=== PATIENT | male | born 1995 | race Caucasian/White ===

== ENCOUNTER 2018-10-08 19:14 | Emergency (ER) | payer MEDICAID, OTHER ==
[2018-10-08] MEDS ORDERED: ALBUTEROL NEB 2.5 MG/3 ML INH STA (21:07)
[2018-10-08] MEDS ORDERED: DOXYCYCLINE 100 MG TABLET PO STA (21:07)
--- NOTE | 2018-10-08 21:10 | ED Physician Documentation ---
PD HPI URI - Stated complaint Stated Complaint: BILAT EAR PX - Chief complaint Chief Complaint: Heent - History obtained from History obtained from: Patient - History of Present Illness Timing - onset: Yesterday Timing duration: Days (2) Timing details: Gradual onset Pain level max: 5 Pain level now: 4 Associated symptoms: Ear pain, Nasal congestion, Rhinorrhea, Dry cough, Dyspnea (wheezing). No: Fever, Chills Contributing factors: Sick contact Improves by: Rest Worsened by: Breathing Similar symptoms before: Has not had sx before Recently seen: Not recently seen Review of Systems Constitutional: denies: Fever, Chills Ears: reports: Ear pain Nose: reports: Rhinorrhea / runny nose, Congestion Throat: denies: Sore throat Cardiac: denies: Chest pain / pressure Respiratory: reports: Dyspnea, Cough, Wheezing GI: denies: Nausea, Vomiting, Diarrhea Skin: denies: Rash Musculoskeletal: denies: Neck pain, Back pain Neurologic: denies: Headache PD PAST MEDICAL HISTORY - Past Medical History Past Medical History: Yes GI: GERD - Past Surgical History Past Surgical History: No - Present Medications Home Medications: Ambulatory Orders Medication Instructions Recorded Confirmed Albuterol Sulf [Ventolin Hfa 1 - 2 puffs INH Q4HR PRN #1 inhaler 10/08/18 Inhaler] Benzonatate [Tessalon Perle] 100 - 200 mg PO TID PRN #30 capsule 10/08/18 Doxycycline Hyclate 100 mg PO BID #20 capsule 10/08/18 - Allergies Allergies/Adverse Reactions: Allergies Allergy/AdvReac Type Severity Reaction Status Date / Time erythromycin base Allergy Unknown Verified 10/08/18 19:24 Penicillins Allergy Unknown Verified 10/08/18 19:24 Sulfa (Sulfonamide Allergy Unknown Verified 10/08/18 19:24 Antibiotics) - Social History Does the pt smoke?: Yes Smoking Status: Current every day smoker Does the pt drink ETOH?: No Does the pt have substance abuse?: No - Immunizations Immunizations are current?: Yes - POLST Patient has POLST: No PD ED PE NORMAL - Vitals Vital signs reviewed: Yes - General General: Alert and oriented X 3, No acute distress, Well developed/nourished - HEENT HEENT: Moist mucous membranes, Pharynx benign, Other (Bilateral tympanic remains are erythematous, dull, bulging with loss of landmarks. Purulent fluid present.) - Neck Neck: Supple, no meningeal sign - Cardiac Cardiac: RRR - Respiratory Respiratory: No respiratory distress, Other (Wheezing and diminished breath sounds bilaterally) - Abdomen Abdomen: Soft, Non tender, Non distended - Derm Derm: Warm and dry, No rash - Extremities Extremities: Normal ROM s pain, No edema - Neuro Neuro: Alert and oriented X 3 Results - Vitals Vitals: Vital Signs - 24 hr 10/08/18 10/08/18 10/08/18 19:20 21:34 21:45 Temperature 36.0 C L Heart Rate 106 H 87 88 Respiratory 18 18 16 Rate Blood Pressure 132/82 H 130/80 O2 Saturation 95 96 Oxygen O2 Source Room air PD MEDICAL DECISION MAKING - ED course Complexity details: reviewed results, re-evaluated patient, considered differential, d/w patient ED course: Patient appears to have bilateral acute otitis media as well as wheezing. Feels better after nebulizer treatment. Has multiple antibiotic allergies. Patient is well-appearing, nontoxic. No hypoxia. No respiratory distress. Patient counseled regarding signs and symptoms for which I believe and urgent re- evaluation would be necessary. Patient with good understanding of and agreement to plan and is comfortable going home at this time This document was made in part using voice recognition software. While efforts are made to proofread this document, sound alike and grammatical errors may occur. Departure - Departure Disposition: 01 Home, Self Care Clinical Impression: Viral URI Otitis media Qualifiers: Otitis media type: suppurative Chronicity: acute Laterality: bilateral Recurrence: non-recurrent Spontaneous tympanic membrane rupture: without spontaneous rupture Qualified Code(s): H66.003 - Acute suppurative otitis media without spontaneous rupture of ear drum, bilateral Condition: Good Instructions: ED Otitis Media Acute Adult, ED Viral Syndrome Follow-Up: your,doctor in 1 week [Other] Prescriptions: Albuterol Sulf [Ventolin Hfa Inhaler] 1 - 2 puffs INH Q4HR PRN #1 inhaler PRN Reason: Shortness Of Air/Wheezing Benzonatate [Tessalon Perle] 100 - 200 mg PO TID PRN #30 capsule PRN Reason: Cough Doxycycline Hyclate 100 mg PO BID #20 capsule Comments: Return if you worsen. Take all antibiotics until gone. Discharge Date/Time: 10/08/18 21:45
[2018-10-08 21:46] VITALS: BP 130/80
== END 2018-10-08 21:45 | disposition home or self-care (01) ==
LOC: ED 19:14
DX: J06.9 Acute upper respiratory infection, unspecified (principal); B97.89 Other viral agents as the cause of diseases classified elsewhere; H66.003 Acute suppurative otitis media without spontaneous rupture of ear drum, bilateral; F17.200 Nicotine dependence, unspecified, uncomplicated
CPT/HCPCS: 94640; 94664; 99283; A9270

== ENCOUNTER 2018-11-19 14:14 | Emergency (ER) | payer OTHER ==
[2018-11-19 14:24] VITALS: BP 131/72
--- NOTE | 2018-11-19 14:26 | ED Physician Documentation ---
PD HPI URI - Stated complaint Stated Complaint: RIGHT EAR PAIN - Chief complaint Chief Complaint: Heent - History obtained from History obtained from: Patient - History of Present Illness Timing - onset: How many weeks ago (He has been having infection in the right ear with pain there. He has been on prior antibiotic without any improvement.) Timing duration: Weeks Timing details: Gradual onset, Still present, Waxing and waning Associated symptoms: Ear pain, Nasal congestion. No: Fever, Dry cough, NVD Similar symptoms before: Diagnosis (ear infection) Review of Systems Constitutional: denies: Fever, Chills, Myalgias Ears: reports: Loss of hearing, Ear pain. denies: Drainage/discharge, Tinnitus/ringing Nose: reports: Congestion. denies: Rhinorrhea / runny nose Throat: denies: Sore throat Respiratory: denies: Cough GI: denies: Nausea, Vomiting Skin: denies: Rash, Lesions PD PAST MEDICAL HISTORY - Past Medical History Cardiovascular: None GI: GERD HEENT: Other (ear infection) - Past Surgical History Past Surgical History: No - Present Medications Home Medications: Ambulatory Orders Medication Instructions Recorded Confirmed Benzonatate [Tessalon Perle] 100 - 200 mg PO TID PRN #30 capsule 10/08/18 RX: Albuterol Sulf [Ventolin Hfa 1 - 2 puffs INH Q4HR PRN #1 inhaler 10/08/18 Inhaler] RX: Doxycycline Hyclate 100 mg PO BID #20 capsule 10/08/18 Cephalexin [Keflex] 500 mg PO TID #21 capsule 11/19/18 Dexamethasone [Decadron] 4 mg PO DAILY #5 tablet 11/19/18 RX: Cetirizine [ZyrTEC] 10 mg PO DAILY #30 tablet 11/19/18 RX: Naproxen 500 mg PO BID #20 tablet 11/19/18 - Allergies Allergies/Adverse Reactions: Allergies Allergy/AdvReac Type Severity Reaction Status Date / Time erythromycin base Allergy Unknown Verified 11/19/18 14:25 Penicillins Allergy Unknown Verified 11/19/18 14:25 Sulfa (Sulfonamide Allergy Unknown Verified 11/19/18 14:25 Antibiotics) - Social History Does the pt smoke?: Yes Smoking Status: Current every day smoker Does the pt drink ETOH?: No Does the pt have substance abuse?: No - Immunizations Immunizations are current?: Yes - POLST Patient has POLST: No PD ED PE NORMAL - Vitals Vital signs reviewed: Yes - General General: Alert and oriented X 3, Well developed/nourished - HEENT HEENT: Pharynx benign. No: Ears normal (left is normal; right with redness and bulging of the TM. Canal appears okay. No drainage. ) - Neck Neck: Supple, no meningeal sign, Other (right preauricular node with tenderness. ) - Cardiac Cardiac: RRR, No murmur - Respiratory Respiratory: Clear bilaterally - Derm Derm: Normal color, Warm and dry, No rash - Neuro Neuro: Alert and oriented X 3, No motor deficit, Normal speech Results - Vitals Vitals: Oxygen O2 Source Room air PD MEDICAL DECISION MAKING - ED course Complexity details: considered differential, d/w patient Departure - Departure Disposition: 01 Home, Self Care Clinical Impression: Otitis media Qualifiers: Otitis media type: suppurative Chronicity: acute Laterality: right Recurrence: recurrent Spontaneous tympanic membrane rupture: without spontaneous rupture Qualified Code(s): H66.004 - Acute suppurative otitis media without spontaneous rupture of ear drum, recurrent, right ear Condition: Stable Record reviewed to determine appropriate education?: Yes Instructions: ED Otitis Media Acute Adult Prescriptions: Cephalexin [Keflex] 500 mg PO TID #21 capsule RX: Cetirizine [ZyrTEC] 10 mg PO DAILY #30 tablet Dexamethasone [Decadron] 4 mg PO DAILY #5 tablet RX: Naproxen 500 mg PO BID #20 tablet Comments: Stay well-hydrated. Off work for the next 2-3 days due to current illness. Cephalexin as directed for the ear infection. Decadron 4 inflammation of the eustachian tube and promote better drainage. I would suggest cetirizine antihistamine daily for a month as recurrent ear infection commonly relates to some underlying allergy or fluid buildup. Use naproxen twice daily for pains. Add Tylenol if needed. Forms: Activity restrictions Discharge Date/Time: 11/19/18 15:02
[2018-11-19] MEDS ORDERED: CHERRY SYRUP 10 ML UDC PO ONE (14:50)
[2018-11-19] MEDS ORDERED: NAPROXEN 250 MG TABLET PO STA (14:50)
[2018-11-19] MEDS ORDERED: ACETAMINOPHEN 325 MG TABLET PO STA (14:50)
[2018-11-19] MEDS ORDERED: DEXAMETHASONE 10 MG/ML VIAL PO STA (14:50)
[2018-11-19] MEDS ORDERED: cephALEXin 250 MG CAPSULE PO STA (14:50)
== END 2018-11-19 15:02 | disposition home or self-care (01) ==
LOC: ED 14:14
DX: H66.004 Acute suppurative otitis media without spontaneous rupture of ear drum, recurrent, right ear (principal); F17.200 Nicotine dependence, unspecified, uncomplicated; Z88.1 Allergy status to other antibiotic agents; Z88.0 Allergy status to penicillin; Z88.2 Allergy status to sulfonamides
CPT/HCPCS: 99283; A9270

== ENCOUNTER 2018-12-19 23:53 | Emergency (ER) | payer MEDICARE, OTHER ==
--- NOTE | 2018-12-20 00:35 | ED Physician Documentation ---
PD HPI UPPER EXT INJURY - Stated complaint Stated Complaint: HAND/KNEE PX - Chief complaint Chief Complaint: Trauma Ext - History obtained from History obtained from: Patient - History of Present Illness Location: Right, Hand (right), Other (left tibia/knee) Type of injury: Fall Timing - onset: Enter time (18:00), Today Timing - details: Abrupt onset Pain level now: 4 Improved by: Rest Worsened by: Moving, Palpating Associated symptoms: Swelling Similar symptoms before: Has not had sx before Recently seen: Not recently seen (T+R from this ED last month for unrelated c/o) - Additonal information Additional information: fell while playing basketball this evening, c/o right hand and left knee pain. patient is right-hand dominant. pain is worse with movement, weight-bearing Review of Systems Skin: reports: Abrasion (s) Musculoskeletal: reports: Extremity pain, Extremity swelling, Pain with weight bearing Neurologic: denies: Focal weakness, Numbness PD PAST MEDICAL HISTORY - Past Medical History Past Medical History: Yes Cardiovascular: None GI: GERD HEENT: Other Psych: Depression, Anxiety - Past Surgical History Past Surgical History: No - Present Medications Home Medications: Ambulatory Orders Medication Instructions Recorded Confirmed Ibuprofen 600 mg PO Q6HR PRN #20 tablet 12/20/18 - Allergies Allergies/Adverse Reactions: Allergies Allergy/AdvReac Type Severity Reaction Status Date / Time erythromycin base Allergy Unknown Verified 12/20/18 00:03 Penicillins Allergy Unknown Verified 12/20/18 00:03 Sulfa (Sulfonamide Allergy Unknown Verified 12/20/18 00:03 Antibiotics) - Social History Does the pt smoke?: Yes Smoking Status: Current every day smoker Does the pt drink ETOH?: Yes Does the pt have substance abuse?: No Substance Use and Type: Marijuana - Immunizations Immunizations are current?: Yes - POLST Patient has POLST: No PD ED PE NORMAL - Vitals Vital signs reviewed: Yes - General General: Alert and oriented X 3, No acute distress, Well developed/nourished PD ED PE EXPANDED - Extremities Extremities: Tenderness, Limited ROM, Swelling, Abrasion JACINDA UE/Hands Visual: 1 - swelling, tenderness JACINDA LE visual: 1 - bruising, abrasion, swelling, tenderness Results - Vitals Vitals: Oxygen O2 Source Room air - Rads (name of study) right hand xrays Radiology: Prelim report reviewed, See rad report PD MEDICAL DECISION MAKING - ED course Complexity details: reviewed results, re-evaluated patient, considered differential, d/w patient Departure - Departure Disposition: 01 Home, Self Care Clinical Impression: Injury of lower leg Qualifiers: Encounter type: initial encounter Laterality: left Qualified Code(s): S89.92XA - Unspecified injury of left lower leg, initial encounter Contusion of right hand Qualifiers: Encounter type: initial encounter Qualified Code(s): S60.221A - Contusion of right hand, initial encounter Condition: Good Instructions: ED Contusion Lower Ext, ED Sprain Hand Prescriptions: Ibuprofen 600 mg PO Q6HR PRN #20 tablet PRN Reason: Pain Comments: There does not appear to be a fracture/break on your hand xrays. This does not mean there is no injury, and the swelling and the tenderness of both your hand and your knee will improve with rest for the next few days Forms: Activity restrictions Discharge Date/Time: 12/20/18 02:43
--- NOTE | 2018-12-20 01:47 | XRAY Report ---
Reason: fall, pain and tenderness thenar eminance Procedure Date: 12/20/2018 Accession Number: [id number] / [id number] Procedure: XR - Hand 3 View RT CPT Code: FULL RESULT: EXAM: RIGHT HAND RADIOGRAPHY EXAM DATE: 12/20/2018 01:41 AM. CLINICAL HISTORY: Fall, pain and tenderness thenar eminence. COMPARISON: None. TECHNIQUE: 3 views. FINDINGS: Bones: No fracture seen. No acute osseous abnormality. Joints: No dislocation seen. Joint spaces appear intact. Soft Tissues: Grossly unremarkable. IMPRESSION: 1. No acute osseous abnormality seen. RADIA
[2018-12-20 02:00] VITALS: BP 119/63
== END 2018-12-20 02:43 | disposition home or self-care (01) ==
LOC: ED 23:53
DX: S60.221A Contusion of right hand, initial encounter (principal); S80.02XA Contusion of left knee, initial encounter; S80.212A Abrasion, left knee, initial encounter; W18.30XA Fall on same level, unspecified, initial encounter; Y93.67 Activity, basketball; F17.200 Nicotine dependence, unspecified, uncomplicated
CPT/HCPCS: 99283

== ENCOUNTER 2019-03-16 10:27 | Emergency (ER) | payer MEDICARE, OTHER, MEDICAID ==
[2019-03-16 10:40] VITALS: BP 130/70
[2019-03-16] MEDS ORDERED: DEXAMETHASONE 10 MG/ML VIAL PO STA (12:32)
[2019-03-16] MEDS ORDERED: CHERRY SYRUP 10 ML UDC PO ONE (12:32)
[2019-03-16] MEDS ORDERED: DOXYCYCLINE 100 MG TABLET PO STA (12:33)
--- NOTE | 2019-03-16 12:34 | ED Physician Documentation ---
History of Present Illness - Stated complaint Stated Complaint: SORE THROAT - Chief complaint Chief Complaint: Heent - History obtained from History obtained from: Patient - History of Present Illness Timing: Today Pain level max: 5 Pain level now: 4 - Additonal information Additional information: 23-year-old male presents to the emergency department complaint of a sore throat today. Denies any rhinorrhea or Congestion. Has had a subjective fever. No vomiting. No abdominal pain. Worse with swallowing, better with rest. Review of Systems Respiratory: denies: Cough GI: denies: Nausea, Vomiting Skin: denies: Rash PD PAST MEDICAL HISTORY - Past Medical History Past Medical History: Yes Cardiovascular: None GI: GERD HEENT: Other Psych: Depression, Anxiety - Past Surgical History Past Surgical History: No - Present Medications Home Medications: Ambulatory Orders Medication Instructions Recorded Confirmed Ibuprofen 600 mg PO Q6HR PRN #20 tablet 12/20/18 Doxycycline Hyclate 100 mg PO BID #20 capsule 03/16/19 - Allergies Allergies/Adverse Reactions: Allergies Allergy/AdvReac Type Severity Reaction Status Date / Time Cephalosporins Allergy Unknown Verified 03/16/19 10:41 erythromycin base Allergy Unknown Verified 03/16/19 10:41 Penicillins Allergy Unknown Verified 03/16/19 10:41 Sulfa (Sulfonamide Allergy Unknown Verified 03/16/19 10:41 Antibiotics) - Social History Does the pt smoke?: Yes Smoking Status: Current every day smoker Does the pt drink ETOH?: Yes Does the pt have substance abuse?: No - Immunizations Immunizations are current?: Yes - POLST Patient has POLST: No PD ED PE NORMAL - Vitals Vital signs reviewed: Yes - General General: Alert and oriented X 3, No acute distress, Well developed/nourished - HEENT HEENT: PERRL, Ears normal, Moist mucous membranes, Other (Moderate posterior oropharyngeal erythema with tonsillar exudates. Uvula midline.) - Neck Neck: Supple, no meningeal sign, Other (Shotty anterior lymphadenopathy) - Cardiac Cardiac: RRR - Respiratory Respiratory: No respiratory distress, Clear bilaterally - Abdomen Abdomen: Soft, Non tender, Non distended - Derm Derm: Warm and dry, No rash - Neuro Neuro: Alert and oriented X 3 - Psych Psych: Normal mood, Normal affect Results - Vitals Vitals: Vital Signs - 24 hr 03/16/19 10:36 Temperature 36 C L Heart Rate 70 Respiratory 18 Rate Blood Pressure 130/70 O2 Saturation 97 Oxygen O2 Source Room air - Labs Labs: Laboratory Tests 03/16/19 10:43 Group A Strep Rapid Negative PD MEDICAL DECISION MAKING - ED course Complexity details: considered differential, d/w patient ED course: 23-year-old male with what appears to be streptococcal pharyngitis clinically. Will place on antibiotics for home. We will follow-up with his doctor for further care. Patient is well-appearing, nontoxic. Normal phonation. No trismus. Patient counseled regarding signs and symptoms for which I believe and urgent re-evaluation would be necessary. Patient with good understanding of and agreement to plan and is comfortable going home at this time This document was made in part using voice recognition software. While efforts are made to proofread this document, sound alike and grammatical errors may occur. Departure - Departure Disposition: 01 Home, Self Care Clinical Impression: Pharyngitis Qualifiers: Pharyngitis/tonsillitis etiology: unspecified etiology Qualified Code(s): J02.9 - Acute pharyngitis, unspecified Condition: Good Instructions: ED Strep Pharyngitis Poss Follow-Up: Your,doctor in 1 week [Other] Prescriptions: Doxycycline Hyclate 100 mg PO BID #20 capsule Comments: Take all antibiotics until gone. Return if you worsen. Follow-up with your doctor for further care. Discharge Date/Time: 03/16/19 12:47
== END 2019-03-16 12:47 | disposition home or self-care (01) ==
LOC: ED 10:27
DX: J02.9 Acute pharyngitis, unspecified (principal); F17.200 Nicotine dependence, unspecified, uncomplicated
CPT/HCPCS: 87070; 87430; 99283; 99284; A9270

== ENCOUNTER 2019-04-01 21:25 | Emergency (ER) | payer MEDICARE, OTHER, MEDICAID ==
[2019-04-01 21:31] VITALS: BP 137/80
[2019-04-01] MEDS ORDERED: HYDROcod/ACET 5/325 Prepack 4 PO STA (21:47)
[2019-04-01] MEDS ORDERED: DOXYCYCLINE 100 MG TABLET PO STA (21:48)
--- NOTE | 2019-04-01 21:52 | ED Physician Documentation ---
PD HPI URI - Stated complaint Stated Complaint: RT EAR PX - Chief complaint Chief Complaint: Heent - History obtained from History obtained from: Patient - History of Present Illness Timing - onset: Today (He had sudden onset bilateral ear pain, the left ear resolved but the right ear is still very painful with muffled hearing. Recent congestion.) Review of Systems Constitutional: denies: Fever, Chills Ears: reports: Loss of hearing, Ear pain, Tinnitus/ringing. denies: Drainage/discharge, Foreign body Nose: reports: Rhinorrhea / runny nose, Congestion PD PAST MEDICAL HISTORY - Past Medical History Past Medical History: Yes Cardiovascular: None GI: GERD HEENT: Other Psych: Depression, Anxiety - Past Surgical History Past Surgical History: No - Present Medications Home Medications: Ambulatory Orders Medication Instructions Recorded Confirmed Doxycycline Hyclate 100 mg PO BID #20 capsule 04/01/19 Hydrocodone/Acetaminophen 1 - 2 each PO Q6H PRN #7 tablet 04/01/19 [Hydrocodon-Acetaminophen 5-325] - Allergies Allergies/Adverse Reactions: Allergies Allergy/AdvReac Type Severity Reaction Status Date / Time Cephalosporins Allergy Unknown Verified 04/01/19 21:31 erythromycin base Allergy Unknown Verified 04/01/19 21:31 Penicillins Allergy Unknown Verified 04/01/19 21:31 Sulfa (Sulfonamide Allergy Unknown Verified 04/01/19 21:31 Antibiotics) - Social History Does the pt smoke?: Yes Smoking Status: Current every day smoker Does the pt drink ETOH?: Yes Does the pt have substance abuse?: No - Immunizations Immunizations are current?: Yes - POLST Patient has POLST: No PD ED PE NORMAL - Vitals Vital signs reviewed: Yes - General General: Alert and oriented X 3, No acute distress - HEENT HEENT: PERRL, EOMI, Other (Bilateral bulging otitis media) - Neck Neck: Supple, no meningeal sign, No bony TTP - Back Back: No CVA TTP, No spinal TTP - Neuro Neuro: Alert and oriented X 3 - Psych Psych: Normal mood, Normal affect Results - Vitals Vitals: Vital Signs - 24 hr 04/01/19 21:30 Heart Rate 84 Respiratory 16 Rate Blood Pressure 137/80 H O2 Saturation 97 Oxygen O2 Source Room air Departure - Departure Disposition: 01 Home, Self Care Clinical Impression: BOM (bilateral otitis media) Qualifiers: Otitis media type: suppurative Chronicity: acute Recurrence: recurrent Spontaneous tympanic membrane rupture: without spontaneous rupture Qualified Code(s): H66.006 - Acute suppurative otitis media without spontaneous rupture of ear drum, recurrent, bilateral Condition: Good Record reviewed to determine appropriate education?: Yes Instructions: ED Otitis Media Acute Adult Prescriptions: Doxycycline Hyclate 100 mg PO BID #20 capsule Hydrocodone/Acetaminophen [Hydrocodon-Acetaminophen 5-325] 1 - 2 each PO Q6H PRN #7 tablet PRN Reason: pain Comments: Drink plenty of fluids, ibuprofen in addition to the prescriptions as needed for pain. Return for new or worsening symptoms. Follow-up with your doctor in a week.
== END 2019-04-01 22:02 | disposition home or self-care (01) ==
LOC: ED 21:25
DX: H66.006 Acute suppurative otitis media without spontaneous rupture of ear drum, recurrent, bilateral (principal); F17.200 Nicotine dependence, unspecified, uncomplicated
CPT/HCPCS: 99282; 99284; A9270

== ENCOUNTER 2019-04-18 15:35 | Emergency (ER) | payer MEDICARE, OTHER, MEDICAID ==
--- NOTE | 2019-04-18 16:17 | ED Physician Documentation ---
History of Present Illness - Stated complaint Stated Complaint: MHE - Chief complaint Chief Complaint: MHE - History obtained from History obtained from: Patient - History of Present Illness Timing: Today Pain level max: 0 Pain level now: 0 - Additonal information Additional information: 23-year-old male states that he was kicked out of [employer]. He states he has no vertigo. He states that [employer] told him to come to the emergency department to be placed on medication and possibly sent to the hospital for a few days. Patient denies suicide attempts or suicidal ideation. He states that he thinks about suicide occasionally, but has no plan and would not harm himself. He states he has been using alcohol and marijuana recently. Took melatonin to help him sleep when he had to sleep outside 2 nights ago. Was seen a counselor [employer]. States he has high functioning autism. Is not curre ntly on medications. Review of Systems Ten Systems: 10 systems reviewed and negative Constitutional: denies: Fever, Chills Nose: denies: Rhinorrhea / runny nose, Congestion Cardiac: denies: Chest pain / pressure Respiratory: denies: Cough GI: denies: Nausea, Vomiting, Diarrhea Skin: denies: Rash Musculoskeletal: denies: Neck pain, Back pain Neurologic: denies: Focal weakness, Numbness, Headache Psychiatric: reports: Depressed, Insomnia. denies: Suicidal, Homicidal, Hallucinations, Delusions PD PAST MEDICAL HISTORY - Past Medical History Past Medical History: Yes Cardiovascular: None GI: GERD HEENT: Other Psych: Depression, Anxiety - Past Surgical History Past Surgical History: No - Present Medications Home Medications: Ambulatory Orders Medication Instructions Recorded Confirmed Doxycycline Hyclate 100 mg PO BID #20 capsule 04/01/19 Hydrocodone/Acetaminophen 1 - 2 each PO Q6H PRN #7 tablet 04/01/19 [Hydrocodon-Acetaminophen 5-325] - Allergies Allergies/Adverse Reactions: Allergies Allergy/AdvReac Type Severity Reaction Status Date / Time Cephalosporins Allergy Unknown Verified 04/18/19 15:46 erythromycin base Allergy Unknown Verified 04/18/19 15:46 Penicillins Allergy Unknown Verified 04/18/19 15:46 Sulfa (Sulfonamide Allergy Unknown Verified 04/18/19 15:46 Antibiotics) - Social History Does the pt smoke?: Yes Smoking Status: Current every day smoker Does the pt drink ETOH?: Yes Does the pt have substance abuse?: No - Immunizations Immunizations are current?: Yes - POLST Patient has POLST: No PD ED PE NORMAL - Vitals Vital signs reviewed: Yes - General General: Alert and oriented X 3, No acute distress, Well developed/nourished - HEENT HEENT: Moist mucous membranes - Neck Neck: Supple, no meningeal sign - Cardiac Cardiac: RRR - Respiratory Respiratory: No respiratory distress, Clear bilaterally - Abdomen Abdomen: Soft, Non tender, Non distended - Derm Derm: Warm and dry - Extremities Extremities: No edema - Neuro Neuro: Alert and oriented X 3, political geographer 2-12 intact, No motor deficit, No sensory deficit, Normal speech - Psych Psych: Normal mood, Normal affect Results - Vitals Vitals: Vital Signs - 24 hr 04/18/19 04/18/19 15:41 16:46 Temperature 36.2 C L Heart Rate 70 78 Respiratory 19 18 Rate Blood Pressure 151/76 H 140/91 H O2 Saturation 95 97 Oxygen O2 Source Room air PD MEDICAL DECISION MAKING - ED course Complexity details: re-evaluated patient, considered differential, d/w patient, d/w consultants intern ED course: 23-year-old male is not actively homicidal or suicidal. No plan. No imminent threat. Consulted with social work and he will go to [facility] in the morning. Patient is comfortable with this plan. No psychosis or delusions. No hallucinations. Patient counseled regarding signs and symptoms for which I believe and urgent re-evaluation would be necessary. Patient with good understanding of and agreement to plan and is comfortable going home at this time This document was made in part using voice recognition software. While efforts are made to proofread this document, sound alike and grammatical errors may occur. Departure - Departure Disposition: 01 Home, Self Care Clinical Impression: Depression Qualifiers: Depression Type: unspecified Qualified Code(s): F32.9 - Major depressive disorder, single episode, unspecified Condition: Good Instructions: ED Depression Follow-Up: your,doctor in 1 week [Other] Comments: Return if you worsen. You can follow up at [facility] tomorrow during their drop in time at 830 am. [facility] is at [address] [place] [address] in [place]. Crisis Line and is available to talk to someone [email or web address] is also available to chat with someone online if you prefer. There are also many resources on this website and apps for your phone to help with your mental health You can also text the word START to [phone] to chat with someome via text. Discharge Date/Time: 04/18/19 16:53
[2019-04-18 16:47] VITALS: BP 140/91
== END 2019-04-18 16:53 | disposition home or self-care (01) ==
LOC: ED 15:35
DX: F32.9 Major depressive disorder, single episode, unspecified (principal); F17.200 Nicotine dependence, unspecified, uncomplicated
CPT/HCPCS: 99283; 99284

== ENCOUNTER 2019-05-23 09:45 | Emergency (ER) | payer MEDICARE, OTHER, MEDICAID ==
[2019-05-23 09:53] VITALS: BP 123/73
[2019-05-23] MEDS ORDERED: NAPROXEN 250 MG TABLET PO STA (11:58)
[2019-05-23] MEDS ORDERED: CYCLOBENZAPRINE 10 MG TABLET PO STA (11:58)
--- NOTE | 2019-05-23 12:00 | ED Physician Documentation ---
PD HPI BACK INJURY - Stated complaint Stated Complaint: BACK PX - History obtained from History obtained from: Patient - History of Present Illness Location: Lower (Woke 2 days ago with low back pain. It is not too bad at rest but hurts a lot if he bends over or twists or lifts anything. He is had this before but it spent a few years. There is no radiation to the pain, no weakness, numbness, tingling, saddle anesthesia, fevers, incontinence.) Review of Systems Constitutional: denies: Fever, Chills Respiratory: denies: Cough GI: denies: Abdominal Pain, Nausea, Vomiting, Diarrhea : denies: Dysuria, Frequency, Incontinent PD PAST MEDICAL HISTORY - Past Medical History Cardiovascular: None GI: GERD HEENT: Other Psych: Depression, Anxiety - Past Surgical History Past Surgical History: No - Present Medications Home Medications: Ambulatory Orders Medication Instructions Recorded Confirmed Doxycycline Hyclate 100 mg PO BID #20 capsule 04/01/19 Hydrocodone/Acetaminophen 1 - 2 each PO Q6H PRN #7 tablet 04/01/19 [Hydrocodon-Acetaminophen 5-325] Cyclobenzaprine [Flexeril] 10 mg PO TID PRN #20 tablet 05/23/19 Naproxen 500 mg PO BID PRN #20 tablet 05/23/19 - Allergies Allergies/Adverse Reactions: Allergies Allergy/AdvReac Type Severity Reaction Status Date / Time Cephalosporins Allergy Unknown Verified 04/18/19 15:46 erythromycin base Allergy Unknown Verified 04/18/19 15:46 Penicillins Allergy Unknown Verified 04/18/19 15:46 Sulfa (Sulfonamide Allergy Unknown Verified 04/18/19 15:46 Antibiotics) - Social History Does the pt smoke?: Yes Smoking Status: Current every day smoker Does the pt drink ETOH?: Yes Does the pt have substance abuse?: No - Immunizations Immunizations are current?: Yes - POLST Patient has POLST: No PD ED PE NORMAL - Vitals Vital signs reviewed: Yes - General General: Alert and oriented X 3, Other (Comfortable at rest but winces with motion) - HEENT HEENT: Ears normal - Respiratory Respiratory: No respiratory distress, Clear bilaterally - Abdomen Abdomen: Normal bowel sounds, Soft, Non tender - Back Back: No spinal TTP, Other (The patient has equal and normal Achilles and patellar reflexes bilaterally. Normal sensation in all areas of the legs. Patient denies saddle anesthesia. Normal strength in flexion-extension at the ankles, knees, and flexion of the hips.) - Neuro Neuro: Alert and oriented X 3, Normal speech Results - Vitals Vitals: Vital Signs - 24 hr 05/23/19 09:51 Temperature 36.6 C Heart Rate 79 Respiratory 18 Rate Blood Pressure 123/73 O2 Saturation 99 Oxygen O2 Source Room air PD MEDICAL DECISION MAKING - ED course ED course: This patient has seemingly uncomplicated musculoskeletal back pain. The patient has no "red flags." Specifically denies IV drug use, fevers, incontinence, saddle anesthesia. Spinal epidural abscess was considered, given that the patient has no fever, is not diabetic, has no spinal tenderness, does not use IV drugs, and has no bilateral neurologic symptoms, the diagnosis of spinal epidural abscess is considered exceedingly unlikely. Departure - Departure Disposition: 01 Home, Self Care Clinical Impression: Back pain Qualifiers: Back pain location: low back pain Chronicity: acute Back pain laterality: bilateral Sciatica presence: without sciatica Qualified Code(s): M54.5 - Low back pain Condition: Good Record reviewed to determine appropriate education?: Yes Instructions: ED Spasm Back No Trauma Prescriptions: Cyclobenzaprine [Flexeril] 10 mg PO TID PRN #20 tablet PRN Reason: Spasms Naproxen 500 mg PO BID PRN #20 tablet PRN Reason: Pain Comments: If not better by the end of the week talk with your doctor about a referral for physical therapy. Return for new worsening symptoms. Do not drink or drive while taking prescription muscle relaxers.
== END 2019-05-23 12:18 | disposition home or self-care (01) ==
LOC: ED 09:45
DX: M54.5 Low back pain (principal); F17.200 Nicotine dependence, unspecified, uncomplicated
CPT/HCPCS: 99282; 99284; A9270

== ENCOUNTER 2019-10-14 10:29 | Emergency (ER) | payer MEDICARE, MEDICAID ==
[2019-10-14] MEDS ORDERED: DEXAMETHASONE 10 MG/ML VIAL PO STA (11:47)
[2019-10-14] MEDS ORDERED: ACETAMINOPHEN 325 MG TABLET PO STA (11:47)
[2019-10-14] MEDS ORDERED: CHERRY SYRUP 10 ML UDC PO ONE (11:47)
[2019-10-14] MEDS ORDERED: DOXYCYCLINE 100 MG TABLET PO STA (11:47)
--- NOTE | 2019-10-14 11:47 | ED Physician Documentation ---
PD HPI URI - Stated complaint Stated Complaint: RT EAR PAIN - Chief complaint Chief Complaint: Heent - History obtained from History obtained from: Patient - History of Present Illness Timing - onset: How many months ago (1) Timing duration: Months (1) Timing details: Gradual onset, Still present (worse the past several days), Waxing and waning Associated symptoms: No: Fever Contributing factors: No: Sick contact, Travel, Immunocompromised Similar symptoms before: Has not had sx before Review of Systems Constitutional: denies: Fever Ears: reports: Ear pain. denies: Drainage/discharge Nose: reports: Congestion. denies: Rhinorrhea / runny nose Throat: denies: Sore throat Respiratory: denies: Cough Psychiatric: reports: Insomnia. denies: Depressed, Delusions PD PAST MEDICAL HISTORY - Past Medical History Cardiovascular: None GI: GERD HEENT: Other Psych: Depression, Anxiety - Past Surgical History Past Surgical History: No - Present Medications Home Medications: Ambulatory Orders Medication Instructions Recorded Confirmed Doxycycline Hyclate 100 mg PO BID #20 capsule 04/01/19 Hydrocodone/Acetaminophen 1 - 2 each PO Q6H PRN #7 tablet 04/01/19 [Hydrocodon-Acetaminophen 5-325] Cyclobenzaprine [Flexeril] 10 mg PO TID PRN #20 tablet 05/23/19 Naproxen 500 mg PO BID PRN #20 tablet 05/23/19 Cetirizine [ZyrTEC] 10 mg PO DAILY #15 tablet 10/14/19 Doxycycline Monohydrate 100 mg PO BID #14 tablet 10/14/19 QUEtiapine [SEROquel] 100 mg PO QPM #20 tablet 10/14/19 - Allergies Allergies/Adverse Reactions: Allergies Allergy/AdvReac Type Severity Reaction Status Date / Time Cephalosporins Allergy Unknown Verified 10/14/19 10:36 erythromycin base Allergy Unknown Verified 10/14/19 10:36 Penicillins Allergy Unknown Verified 10/14/19 10:36 Sulfa (Sulfonamide Allergy Unknown Verified 10/14/19 10:36 Antibiotics) - Social History Does the pt smoke?: Yes Smoking Status: Current every day smoker Does the pt drink ETOH?: Yes Does the pt have substance abuse?: No - Immunizations Immunizations are current?: Yes - POLST Patient has POLST: No PD ED PE NORMAL - Vitals Vital signs reviewed: Yes - General General: Alert and oriented X 3, No acute distress, Well developed/nourished - HEENT HEENT: Pharynx benign. No: Ears normal (left is okay. right with redness and bulging of TM markedly so, without perforation. Canal is okay. ) - Neck Neck: Supple, no meningeal sign, No adenopathy - Cardiac Cardiac: RRR, No murmur - Respiratory Respiratory: Clear bilaterally - Back Back: No CVA TTP - Derm Derm: Normal color, Warm and dry - Psych Psych: Normal mood, Normal affect Results - Vitals Vitals: Oxygen O2 Source Room air PD MEDICAL DECISION MAKING - ED course Complexity details: considered differential (has ear infection. Also unable to get Rx for his Seroquel due to time getting new provider appt. ), d/w patient Departure - Departure Disposition: 01 Home, Self Care Clinical Impression: Otitis media Qualifiers: Otitis media type: suppurative Chronicity: acute Laterality: right Recurrence: non-recurrent Spontaneous tympanic membrane rupture: without spontaneous rupture Qualified Code(s): H66.001 - Acute suppurative otitis media without spontaneous rupture of ear drum, right ear Condition: Stable Record reviewed to determine appropriate education?: Yes Instructions: ED Otitis Media Acute Adult Follow-Up: DIEGO RODRIGUEZ MD [Primary Care Provider] - Prescriptions: Cetirizine [ZyrTEC] 10 mg PO DAILY #15 tablet Doxycycline Monohydrate 100 mg PO BID #14 tablet QUEtiapine [SEROquel] 100 mg PO QPM #20 tablet Discharge Date/Time: 10/14/19 12:05
[2019-10-14 12:10] VITALS: BP 146/84
== END 2019-10-14 12:05 | disposition home or self-care (01) ==
LOC: ED 10:29
DX: H66.001 Acute suppurative otitis media without spontaneous rupture of ear drum, right ear (principal); F17.200 Nicotine dependence, unspecified, uncomplicated
CPT/HCPCS: 99283; A9270